=== PATIENT | male | born 1990 | race Caucasian/White ===

== ENCOUNTER 2022-10-20 18:03 | Emergency (ER) | payer OTHER ==
[2022-10-20 18:17] VITALS: BP 132/73
[2022-10-20] MEDS ORDERED: BUFFERED LIDOCAINE 10 ML SYRINGE SUBQ STA (18:21)
--- NOTE | 2022-10-20 18:22 | ED Physician Documentation ---
PD HPI UPPER EXT INJURY - Stated complaint Stated Complaint: LT PINKY INJ - Chief complaint Chief Complaint: Laceration - History obtained from History obtained from: Patient (This is an otherwise healthy right-handed gentleman who is active duty in the [employer] and up-to-date on tetanus who accidentally smashed his left thumb with a mallet while installing ramirez just prior to arrival. No other injuries.) Review of Systems Constitutional: reports: Reviewed and negative Nose: reports: Reviewed and negative Cardiac: reports: Reviewed and negative PD PAST MEDICAL HISTORY - Allergies Allergies/Adverse Reactions: Allergies Allergy/AdvReac Type Severity Reaction Status Date / Time No Known Drug Allergies Allergy Verified 10/20/22 18:17 PD ED PE NORMAL - Vitals Vital signs reviewed: Yes - General General: Alert and oriented X 3, No acute distress - Derm Derm: Normal color, Warm and dry - Extremities Extremities: Other (There is tenderness to the DIP and the tuft of the left thumb with a 1 cm laceration on the palmar surface and a shallow laceration on the dorsal surface.) - Neuro Neuro: Alert and oriented X 3, Normal speech Results - Vitals Vitals: Vital Signs - 24 hr 10/20/22 18:14 Temperature 36.6 C Heart Rate 60 Respiratory 16 Rate Blood Pressure 132/73 H O2 Saturation 99 Oxygen O2 Source Room air - Rads (name of study) Three-view x-ray of the left small finger is negative for fracture Radiology: EMP read contemporaneously Procedures - Laceration (location) Dorsal left pinky Wound type: Superficial Neurovascular status: Sensory intact, Motor intact, Vascular intact Tendon involvement: Tendon intact Wound preparation: Irrigated copiously NS Skin layer closure: Dermabond Other: Patient tolerated well, No complications, Neurovascular intact, Tetanus UTD Palmar left pinky Length in cm: 1.5 Wound type: Curved, Into subcut fat Neurovascular status: Sensory intact, Motor intact, Vascular intact Anesthesia: Lidocaine 1%, With bicarb Wound preparation: Irrigated copiously NS Skin layer closure: Nylon, Interrupted, Size #-0 - enter number (5-0), Sutures - enter # (5) Other: Patient tolerated well, No complications, Neurovascular intact, Tetanus UTD Departure - Departure Disposition: 01 Home, Self Care Clinical Impression: Laceration of finger, left Qualifiers: Encounter type: initial encounter Finger: little finger Damage to nail status: without damage Foreign body presence: without foreign body Qualified Code(s): S61.217A - Laceration without foreign body of left little finger without damage to nail, initial encounter Condition: Good Record reviewed to determine appropriate education?: Yes Instructions: ED Laceration Hand Comments: Come back for any signs of infection which would include: Redness, swelling, drainage, increased pain, or fevers. You can wash it soap and water. Keep it covered and moist with bacitracin ointment which is available over the counter; avoid neosporin. Follow-up with your physician in 14 days for suture removal. Discharge Date/Time: 10/20/22 18:58
--- NOTE | 2022-10-20 18:52 | XRAY Report ---
PROCEDURE: Finger(s) LT INDICATIONS: 5th finger inj TECHNIQUE: AP hand, 2 views of the fifth finger(s) acquired. COMPARISON: None FINDINGS: Bones: No fractures or dislocations. No suspicious bony lesions. Soft tissues: No suspicious soft tissue calcifications. No radiodense foreign bodies. IMPRESSION: No visible fractures or dislocation. Reviewed by: Rochelle Joiner MD on 10/20/2022 6:50 PM PST Approved by: Rochelle Joiner MD on 10/20/2022 6:50 PM PST Station ID: [id number]
== END 2022-10-20 18:58 | disposition home or self-care (01) ==
LOC: ED 18:03
DX: S61.217A Laceration without foreign body of left little finger without damage to nail, initial encounter (principal); W22.8XXA Striking against or struck by other objects, initial encounter; Y93.H3 Activity, building and construction
CPT/HCPCS: 12001; 99283